=== PATIENT | female | born 1970 | race Caucasian/White ===

== ENCOUNTER 2018-09-20 08:56 | Outpatient (CLI) | payer OTHER | END 2018-09-20 09:09 | disposition home or self-care (01) | LOC: LAB 08:56 | DX: R94.6 Abnormal results of thyroid function studies (principal) ==

== ENCOUNTER → 2018-09-20 | Outpatient (CLI) | payer OTHER | END | disposition home or self-care (01) | LOC: NUCLEAR 09-06 07:30 | DX: E05.90 Thyrotoxicosis, unspecified without thyrotoxic crisis or storm (principal); E04.0 Nontoxic diffuse goiter | CPT/HCPCS: 78012; A9531 ==

== ENCOUNTER → 2018-09-21 | Outpatient (CLI) | payer OTHER | END | disposition home or self-care (01) | LOC: NUCLEAR 08:07 | DX: E05.00 Thyrotoxicosis with diffuse goiter without thyrotoxic crisis or storm (principal); E04.1 Nontoxic single thyroid nodule | CPT/HCPCS: 78013; A9512 ==

== ENCOUNTER 2019-01-26 13:29 | Outpatient (CLI) | payer OTHER | END 2019-01-26 13:32 | disposition home or self-care (01) | LOC: NUCLEAR 13:29 | DX: N28.89 Other specified disorders of kidney and ureter (principal); M18.2 Bilateral post-traumatic osteoarthritis of first carpometacarpal joints | CPT/HCPCS: 78708; A9539 ==